=== PATIENT | female | born 1995 | race Two or more races ===

== ENCOUNTER 2020-05-19 13:15 | Emergency (ER) | payer OTHER ==
[~2020-05-19] VITALS: Ht 160 cm; Wt 66.1 kg
[2020-05-19 13:15] VITALS: BP 123/80
[2020-05-19] MEDS ORDERED: BOOSTRIX/ADACEL VACCINE (DIPHTH/PERTUSS/ACELL/TETANUS) 0.5ML SYR IM ONE (14:00)
== END 2020-05-19 14:27 | disposition home or self-care (01) ==
LOC: M ED 13:15
DX: S81.859A Open bite, unspecified lower leg, initial encounter (principal); W54.0XXA Bitten by dog, initial encounter; Y92.009 Unspecified place in unspecified non-institutional (private) residence as the place of occurrence of the external cause; Y93.89 Activity, other specified; Y99.8 Other external cause status